=== PATIENT | female | born 1965 | race Caucasian/White ===

== ENCOUNTER 2023-03-31 09:08 | Outpatient (RCR) | payer MEDICARE, OTHER, SELFPAY | END 2023-03-31 23:59 | disposition home or self-care (01) | LOC: RPT 09:08 | PROVIDERS: ATTENDING PHYSICIAN Internal Medicine; FAMILY PHYSICIAN Family Medicine | DX: K59.4 Anal spasm (principal); M62.89 Other specified disorders of muscle; N94.10 Unspecified dyspareunia; R10.2 Pelvic and perineal pain; Z73.6 Limitation of activities due to disability | CPT/HCPCS: 97110; 97112; 97140; 97530 ==

== ENCOUNTER 2023-04-14 09:03 | Outpatient (RCR) | payer MEDICARE, OTHER, SELFPAY | END 2023-04-14 23:59 | disposition home or self-care (01) | LOC: RPT 09:03 | PROVIDERS: ATTENDING PHYSICIAN Internal Medicine; FAMILY PHYSICIAN Family Medicine | DX: K59.4 Anal spasm (principal); M62.89 Other specified disorders of muscle; N94.10 Unspecified dyspareunia; R10.2 Pelvic and perineal pain | CPT/HCPCS: 97112; 97140; 97530 ==

== ENCOUNTER 2023-06-01 18:54 | Outpatient (RCR) | payer MEDICARE, OTHER, SELFPAY | END 2023-06-01 23:59 | disposition home or self-care (01) | LOC: RPT 18:54 | PROVIDERS: ATTENDING PHYSICIAN Internal Medicine; FAMILY PHYSICIAN Family Medicine | DX: K59.4 Anal spasm (principal); M62.89 Other specified disorders of muscle; N94.10 Unspecified dyspareunia; R10.2 Pelvic and perineal pain; Z73.6 Limitation of activities due to disability | CPT/HCPCS: 97110; 97112; 97140; 97530 ==

== ENCOUNTER 2023-06-19 09:59 | Outpatient (RCR) | payer MEDICARE, OTHER, SELFPAY | END 2023-06-19 23:59 | disposition home or self-care (01) | LOC: RPT 09:59 | PROVIDERS: ATTENDING PHYSICIAN Internal Medicine; FAMILY PHYSICIAN Family Medicine | DX: K59.4 Anal spasm (principal); M62.89 Other specified disorders of muscle; N94.10 Unspecified dyspareunia; R10.2 Pelvic and perineal pain; Z73.6 Limitation of activities due to disability | CPT/HCPCS: 97110; 97140; 97530 ==

== ENCOUNTER → 2023-07-12 08:02 | Outpatient (REF) | payer MEDICARE, OTHER, SELFPAY | LOC: RAD 08:02 | PROVIDERS: ATTENDING PHYSICIAN Nurse Practitioner; FAMILY PHYSICIAN Family Medicine | DX: M54.2 Cervicalgia (principal); M54.12 Radiculopathy, cervical region | CPT/HCPCS: 72052 ==

== ENCOUNTER 2023-07-17 13:46 | Outpatient (RCR) | payer MEDICARE, OTHER, SELFPAY | END 2023-08-04 23:59 | disposition home or self-care (01) | LOC: RPT 13:46 | PROVIDERS: ATTENDING PHYSICIAN Internal Medicine; FAMILY PHYSICIAN Family Medicine | DX: K59.4 Anal spasm (principal); M62.89 Other specified disorders of muscle; N94.10 Unspecified dyspareunia; R10.2 Pelvic and perineal pain; Z73.6 Limitation of activities due to disability | CPT/HCPCS: 97140; 97530 ==

== ENCOUNTER → 2023-07-18 08:58 | Outpatient (REF) | payer MEDICARE, OTHER, SELFPAY | LOC: RAD 08:58 | PROVIDERS: ATTENDING PHYSICIAN Psychiatry & Neurology Neurology; FAMILY PHYSICIAN Family Medicine | DX: M54.2 Cervicalgia (principal) | CPT/HCPCS: 76536 ==

== ENCOUNTER 2023-09-06 17:05 | Outpatient (RCR) | payer MEDICARE, OTHER, SELFPAY | END 2023-09-06 23:59 | disposition home or self-care (01) | LOC: RPT 17:05 | PROVIDERS: ATTENDING PHYSICIAN Internal Medicine; FAMILY PHYSICIAN Family Medicine | DX: K59.4 Anal spasm (principal); M62.89 Other specified disorders of muscle; N94.10 Unspecified dyspareunia; R10.2 Pelvic and perineal pain; Z73.6 Limitation of activities due to disability | CPT/HCPCS: 97112; 97140; 97530 ==

== ENCOUNTER 2023-09-25 11:04 | Outpatient (RCR) | payer MEDICARE, OTHER, SELFPAY | END 2023-09-25 23:59 | disposition home or self-care (01) | LOC: RPT 11:04 | PROVIDERS: ATTENDING PHYSICIAN Internal Medicine; FAMILY PHYSICIAN Family Medicine | DX: K59.4 Anal spasm (principal); M62.89 Other specified disorders of muscle; N94.10 Unspecified dyspareunia; R10.2 Pelvic and perineal pain; Z73.6 Limitation of activities due to disability | CPT/HCPCS: 97112; 97140; 97530 ==

== ENCOUNTER → 2023-10-02 13:51 | Outpatient (REF) | payer MEDICARE, OTHER, SELFPAY | LOC: RAD 13:51 | PROVIDERS: ATTENDING PHYSICIAN Internal Medicine; FAMILY PHYSICIAN Family Medicine | DX: K59.04 Chronic idiopathic constipation (principal); R11.2 Nausea with vomiting, unspecified; R63.4 Abnormal weight loss; R10.13 Epigastric pain; Z87.19 Personal history of other diseases of the digestive system | CPT/HCPCS: 71270; 74178; Q9967 ==

== ENCOUNTER → 2023-11-06 06:56 | Outpatient (REF) | payer MEDICARE, OTHER, SELFPAY | LOC: MRI 06:56 | PROVIDERS: ATTENDING PHYSICIAN Nurse Practitioner; FAMILY PHYSICIAN Family Medicine; REFERRING PHYSICIAN Psychiatry & Neurology Neurology | DX: M96.1 Postlaminectomy syndrome, not elsewhere classified (principal); G89.4 Chronic pain syndrome; M54.50 Low back pain, unspecified; M54.16 Radiculopathy, lumbar region | CPT/HCPCS: 72148 ==

== ENCOUNTER 2023-11-08 11:17 | Outpatient (RCR) | payer MEDICARE, OTHER, SELFPAY | END 2023-11-08 23:59 | disposition home or self-care (01) | LOC: RPT 11:17 | PROVIDERS: ATTENDING PHYSICIAN Internal Medicine; FAMILY PHYSICIAN Family Medicine | DX: K59.4 Anal spasm (principal); M62.89 Other specified disorders of muscle; N94.10 Unspecified dyspareunia; R10.2 Pelvic and perineal pain; Z73.6 Limitation of activities due to disability | CPT/HCPCS: 97112; 97140; 97530 ==

== ENCOUNTER 2023-11-13 09:07 | Outpatient (RCR) | payer MEDICARE, OTHER, SELFPAY | END 2023-11-13 23:59 | disposition home or self-care (01) | LOC: RPT 09:07 | PROVIDERS: ATTENDING PHYSICIAN Internal Medicine; FAMILY PHYSICIAN Family Medicine | DX: K59.4 Anal spasm (principal); M62.89 Other specified disorders of muscle; N94.10 Unspecified dyspareunia; R10.2 Pelvic and perineal pain; Z73.6 Limitation of activities due to disability | CPT/HCPCS: 97112; 97530 ==

== ENCOUNTER 2024-01-08 06:57 | Outpatient (RCR) | payer MEDICARE, OTHER, SELFPAY | END 2024-01-08 23:59 | disposition home or self-care (01) | LOC: RPT 06:57 | PROVIDERS: ATTENDING PHYSICIAN Internal Medicine; FAMILY PHYSICIAN Family Medicine | DX: K59.4 Anal spasm (principal); M62.89 Other specified disorders of muscle; N94.10 Unspecified dyspareunia; R10.2 Pelvic and perineal pain; Z73.6 Limitation of activities due to disability | CPT/HCPCS: 97140; 97530 ==

== ENCOUNTER → 2024-01-24 14:27 | Outpatient (REF) | payer MEDICARE, OTHER, SELFPAY | LOC: RAD 14:27 | PROVIDERS: ATTENDING PHYSICIAN Internal Medicine; FAMILY PHYSICIAN Family Medicine; OTHER PHYSICIAN Physician Assistant Surgical | DX: K59.04 Chronic idiopathic constipation (principal); M62.89 Other specified disorders of muscle; M54.50 Low back pain, unspecified | CPT/HCPCS: 72110; 74019 ==

== ENCOUNTER 2024-02-02 09:03 | Outpatient (RCR) | payer MEDICARE, OTHER, SELFPAY | END 2024-02-02 23:59 | disposition home or self-care (01) | LOC: RPT 09:03 | PROVIDERS: ATTENDING PHYSICIAN Internal Medicine; FAMILY PHYSICIAN Family Medicine | DX: K59.4 Anal spasm (principal); M62.89 Other specified disorders of muscle; N94.10 Unspecified dyspareunia; R10.2 Pelvic and perineal pain; Z73.6 Limitation of activities due to disability | CPT/HCPCS: 97110; 97112; 97530 ==

== ENCOUNTER 2024-02-21 15:06 | Outpatient (RCR) | payer MEDICARE, OTHER, SELFPAY | END 2024-02-21 23:59 | disposition home or self-care (01) | LOC: RPT 15:06 | PROVIDERS: ATTENDING PHYSICIAN Internal Medicine; FAMILY PHYSICIAN Family Medicine | DX: K59.4 Anal spasm (principal); M62.89 Other specified disorders of muscle; N94.10 Unspecified dyspareunia; R10.2 Pelvic and perineal pain; Z73.6 Limitation of activities due to disability | CPT/HCPCS: 97110; 97140; 97530 ==

== ENCOUNTER → 2024-02-28 07:55 | Outpatient (REF) | payer MEDICARE, OTHER, SELFPAY | LOC: RAD 07:55 | PROVIDERS: ATTENDING PHYSICIAN Internal Medicine; FAMILY PHYSICIAN Family Medicine | DX: K59.04 Chronic idiopathic constipation (principal); R11.2 Nausea with vomiting, unspecified; M62.89 Other specified disorders of muscle | CPT/HCPCS: 78264; A9541 ==

== ENCOUNTER → 2024-03-14 08:12 | Outpatient (REF) | payer MEDICARE, OTHER, SELFPAY | LOC: WDC 08:12 | PROVIDERS: ATTENDING PHYSICIAN Family Medicine | DX: Z12.31 Encounter for screening mammogram for malignant neoplasm of breast (principal) | CPT/HCPCS: 77063; 77067 ==

== ENCOUNTER → 2024-03-15 17:59 | Outpatient (REF) | payer MEDICARE, OTHER, SELFPAY | LOC: PAVMRI 17:59 | PROVIDERS: ATTENDING PHYSICIAN Physician Assistant Surgical; FAMILY PHYSICIAN Family Medicine | DX: M54.2 Cervicalgia (principal); M54.12 Radiculopathy, cervical region | CPT/HCPCS: 72141 ==

== ENCOUNTER → 2024-03-21 09:25 | Outpatient (REF) | payer MEDICARE, OTHER, SELFPAY | LOC: RAD 09:25 | PROVIDERS: ATTENDING PHYSICIAN Internal Medicine; FAMILY PHYSICIAN Family Medicine | DX: K59.04 Chronic idiopathic constipation (principal); R11.2 Nausea with vomiting, unspecified; M62.89 Other specified disorders of muscle | CPT/HCPCS: 74270 ==

== ENCOUNTER 2024-03-29 09:55 | Outpatient (RCR) | payer MEDICARE, OTHER, SELFPAY | END 2024-03-29 23:59 | disposition home or self-care (01) | LOC: RPT 09:55 | PROVIDERS: ATTENDING PHYSICIAN Internal Medicine; FAMILY PHYSICIAN Family Medicine | DX: K59.4 Anal spasm (principal); M62.89 Other specified disorders of muscle; N94.10 Unspecified dyspareunia; R10.2 Pelvic and perineal pain; Z73.6 Limitation of activities due to disability | CPT/HCPCS: 97110; 97112; 97140; 97530 ==

== ENCOUNTER 2024-05-10 15:02 | Outpatient (RCR) | payer MEDICARE, OTHER, SELFPAY | END 2024-05-10 23:59 | disposition home or self-care (01) | LOC: RPT 15:02 | PROVIDERS: ATTENDING PHYSICIAN Internal Medicine; FAMILY PHYSICIAN Family Medicine | DX: K59.4 Anal spasm (principal); M62.89 Other specified disorders of muscle; N94.10 Unspecified dyspareunia; R10.2 Pelvic and perineal pain; Z73.6 Limitation of activities due to disability | CPT/HCPCS: 97110; 97112; 97530 ==

== ENCOUNTER 2024-06-07 15:09 | Outpatient (RCR) | payer MEDICARE, OTHER, SELFPAY | END 2024-06-07 23:59 | disposition home or self-care (01) | LOC: RPT 15:09 | PROVIDERS: ATTENDING PHYSICIAN Internal Medicine; FAMILY PHYSICIAN Family Medicine | DX: K59.4 Anal spasm (principal); M62.89 Other specified disorders of muscle; N94.10 Unspecified dyspareunia; R10.2 Pelvic and perineal pain; Z73.6 Limitation of activities due to disability | CPT/HCPCS: 97110; 97112; 97530 ==

== ENCOUNTER 2024-06-17 09:02 | Outpatient (RCR) | payer MEDICARE, OTHER, SELFPAY | END 2024-06-17 23:59 | disposition home or self-care (01) | LOC: RPT 09:02 | PROVIDERS: ATTENDING PHYSICIAN Internal Medicine; FAMILY PHYSICIAN Family Medicine | DX: K59.4 Anal spasm (principal); M62.89 Other specified disorders of muscle; N94.10 Unspecified dyspareunia; R10.2 Pelvic and perineal pain; Z73.6 Limitation of activities due to disability | CPT/HCPCS: 97530 ==

== ENCOUNTER 2024-07-22 10:07 | Outpatient (RCR) | payer MEDICARE, OTHER, SELFPAY | END 2024-07-22 23:59 | disposition home or self-care (01) | LOC: RPT 10:07 | PROVIDERS: ATTENDING PHYSICIAN Internal Medicine; FAMILY PHYSICIAN Family Medicine | DX: K59.4 Anal spasm (principal); M62.89 Other specified disorders of muscle; N94.10 Unspecified dyspareunia; R10.2 Pelvic and perineal pain; Z73.6 Limitation of activities due to disability | CPT/HCPCS: 97530 ==

== ENCOUNTER 2024-08-29 06:05 | Inpatient (IN) | payer MEDICARE, OTHER, SELFPAY ==
[2024-08-16 09:03] LABS: Hematocrit 36.6 % (37.0-47.0); Hemoglobin 12.1 g/dL (12.0-16.0); Mean Corp Hgb Conc. 33.1 g/dL (33.0-37.0); Mean Corpuscular Volume 90.6 fL (81.0-99.0); Mean Platelet Volume 10.1 fL (7.4-10.4); Platelet Count 253 10^3/uL (130-400); Red Blood Cell Count 4.04 10^6/uL (4.20-5.40); Red Cell Dist. Width 11.9 % (11.5-14.5); White Blood Cell Count 5.6 10^3/uL (4.8-10.8)
[2024-08-16 09:22] LABS: INR 0.93; PT 12.7 Sec (11.4-14.6)
[2024-08-16 09:23] LABS: APTT 26.3 Sec (23.4-35.0)
[2024-08-16 09:32] LABS: ALT (SGPT) 15 U/L (0-35); AST (SGOT) 18 U/L (14-36); Albumin 3.6 g/dl (3.5-5.0); Alkaline Phosphatase 71 U/L (38-126); Blood Urea Nitrogen 12 mg/dl (7-17); Calcium 9.7 mg/dl (8.4-10.2); Carbon Dioxide 33 mmol/L (22-30); Chloride 104 mmol/L (98-107); Glucose 89 mg/dl (70-99); Potassium 4.6 mmol/L (3.5-5.1); Sodium 140 mmol/L (135-145); Total Bilirubin 0.5 mg/dl (0.2-1.3); eGFR > 60.00
[2024-08-16 12:59] LABS: Glycohemoglobin (HgbA1c) 4.8 % (4.0-5.6)
[2024-08-16 13:37] VITALS: BMI 29.5
[2024-08-29] VITALS (17 sets, daily range): BP systolic 105–134; BP diastolic 62–93; BMI 29.5
[2024-08-29] MEDS: NORMOSOL-R/PLASMALYTE-A 1000 IV ×3 (06:50→21:44)
[2024-08-29] MEDS: TYLENOL 1000 MG PO (06:54)
[2024-08-29] MEDS: NEURONTIN 600 MG PO (06:54)
[2024-08-29] MEDS: HEPARIN 5000 UNITS SC (06:54)
[2024-08-29] MEDS: ENTEREG 12 MG PO (06:54)
[2024-08-29 07:07] LABS: Glucose - Point of Care 80 mg/dl (70-99)
--- NOTE | 2024-08-29 09:58 | W.IMMPOSTOP ---
Surgical Immed Post Op Note
-
Primary Surgeon: Catalina Coffman MD
Assisting Surgeon: SUDHA Camarena
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
Post-op Diagnosis: same
Procedure Performed: 1) robotic loop ileostomy creation 2) lysis of adhesions
Anesthesia Type: general plus local
Specimen / Cultures: none
Estimated Blood Loss: 10 cc
Complications: no immediate
Operative Findings: abdominal adhesions
Sandhu in bladder.
Sending to med surg.
[2024-08-29 10:17] LABS: Glucose - Point of Care 109 mg/dl (70-99)
[2024-08-29 10:50] LABS: % Basophils 0.3 % (0-2); % Eosinophils 0.1 % (0-6); % Immature Granulocytes 0.4 % (0-0.5); % Lymphocytes 9.3 % (20.5-51.1); % Monocytes 2.5 % (1.7-9.3); % Neutrophils 87.4 % (42.2-75.2); Absolute Lymphocytes 0.7 10^3/uL (1.2-3.4); Absolute Monocytes 0.2 10^3/uL (0.1-0.6); Absolute Neutrophils 6.2 10^3/uL (1.4-6.5); Hematocrit 36.3 % (37.0-47.0); Hemoglobin 12.4 g/dL (12.0-16.0); Mean Corp Hgb Conc. 34.2 g/dL (33.0-37.0); Mean Corpuscular Hgb 30.2 pg (27.0-31.0); Mean Corpuscular Volume 88.3 fL (81.0-99.0); Mean Platelet Volume 9.6 fL (7.4-10.4); Nucleated Red Blood Cells % 0 %; Platelet Count 202 10^3/uL (130-400); Red Blood Cell Count 4.11 10^6/uL (4.20-5.40); Red Cell Dist. Width 11.7 % (11.5-14.5); White Blood Cell Count 7.1 10^3/uL (4.8-10.8)
[2024-08-29 11:03] LABS: Blood Urea Nitrogen 6 mg/dl (7-17); Carbon Dioxide 25 mmol/L (22-30); Chloride 108 mmol/L (98-107); Estimated Creatinine Clearance 103 ml/min; Glucose 107 mg/dl (70-99); Magnesium 1.8 mg/dl (1.6-2.3); Potassium 3.5 mmol/L (3.5-5.1); Sodium 139 mmol/L (135-145); eGFR > 60.00
[2024-08-29] MEDS: TORADOL 10 MG IV ×3 (11:25→21:30)
[2024-08-29] MEDS: DILAUDID 0.25 MG IV ×2 (12:14→20:49)
--- NOTE | 2024-08-29 12:45 | PTCARENOTE ---
Patient admitted from PACU post robotic loop ileostomy secondary to colonic inertia.The patient is drowsy but arouses easily.She reports her pain at 4 out of 10.All incisions are open to air without drainage.Vital signs are stable.The patient is in
her bed with the call egan in reach.
[2024-08-29] MEDS: TYLENOL PO ×2 (15:05→23:22)
[2024-08-29] MEDS: TYLENOL 650 MG PO ×2 (16:00→20:42)
[2024-08-29] MEDS: COREG 3.125 MG PO (20:42)
[2024-08-29] MEDS: ZANAFLEX 2 MG PO (21:30)
[2024-08-29] MEDS: CYMBALTA DELAYED RELEASE 90 MG PO (21:30)
[2024-08-30] MEDS: DILAUDID 0.5 MG IV (01:15)
[2024-08-30] MEDS: TORADOL 10 MG IV ×4 (03:07→21:48)
[2024-08-30] MEDS: TYLENOL 650 MG PO ×6 (03:08→23:44)
[2024-08-30 03:31] VITALS: BP 100/61
[2024-08-30 06:00] VITALS: BMI 29.9
[2024-08-30] MEDS: DILAUDID 0.25 MG IV (06:40)
[2024-08-30 07:20] VITALS: BP 104/67
[2024-08-30 07:50] LABS: % Basophils 0.1 % (0-2); % Eosinophils 0.2 % (0-6); % Immature Granulocytes 0.4 % (0-0.5); % Lymphocytes 21.4 % (20.5-51.1); % Monocytes 10.3 % (1.7-9.3); % Neutrophils 67.6 % (42.2-75.2); Absolute Lymphocytes 1.7 10^3/uL (1.2-3.4); Absolute Monocytes 0.8 10^3/uL (0.1-0.6); Absolute Neutrophils 5.4 10^3/uL (1.4-6.5); Hematocrit 31.3 % (37.0-47.0); Hemoglobin 10.7 g/dL (12.0-16.0); Mean Corp Hgb Conc. 34.2 g/dL (33.0-37.0); Mean Corpuscular Volume 87.7 fL (81.0-99.0); Mean Platelet Volume 9.9 fL (7.4-10.4); Nucleated Red Blood Cells % 0 %; Platelet Count 193 10^3/uL (130-400); Red Blood Cell Count 3.57 10^6/uL (4.20-5.40); Red Cell Dist. Width 11.6 % (11.5-14.5)
[2024-08-30 08:50] LABS: Blood Urea Nitrogen 6 mg/dl (7-17); Calcium 9.8 mg/dl (8.4-10.2); Carbon Dioxide 28 mmol/L (22-30); Chloride 106 mmol/L (98-107); Estimated Creatinine Clearance 104 ml/min; Glucose 93 mg/dl (70-99); Magnesium 1.8 mg/dl (1.6-2.3); Potassium 4.2 mmol/L (3.5-5.1); Sodium 136 mmol/L (135-145); eGFR > 60.00
[2024-08-30] MEDS: PROTONIX 40 MG PO (09:17)
[2024-08-30] MEDS: ENTEREG 12 MG PO ×2 (09:17→20:38)
[2024-08-30] MEDS: COREG PO (09:24)
[2024-08-30 11:15] VITALS: BP 115/67
--- NOTE | 2024-08-30 12:05 | CM ---
CM following re: discharge planning.
Reviewed pt's chart, met with pt and two daughters at bedside.
Pt is a 59 year old female, admitted with primary dx of Robotic loop ileostomy creation.
Pt reports she lives with and a daughter in a 2SH, 1 step to enter, another daughter lives next door. Pt described herself as independent in all areas [employer].
CM consulted to arrange VN services for Ostomy care. CM discussed it with the pt, VN choices provided, [facility] chosen. A referral to [facility] made.
PCP: Cady Luke
Pharmacy: [facility].
D/C plan: home with [facility] and family support.
CM will follow with discharge plan updates as hospitalization progresses
[2024-08-30] MEDS: NORMOSOL-R/PLASMALYTE-A IV (12:07)
--- NOTE | 2024-08-30 12:44 | VNURNOTE ---
Home Health Liaison met with patient and daughters at bedside to discuss [facility] nurse/therapy, visits, schedule and homebound status. Patient is agreeable and understands that visits at home will be 2-3 x per week to assess and teach medical and
ostomy management.
[facility] contact information provided. Patient is aware that [facility] will contact them for start of care in 1-2 days after discharge from .
[facility] referral completed in [facility].
--- NOTE | 2024-08-30 13:49 | WOUNDNOTE ---
[facility] RN note: Patient s/p ostomy surgery yesterday (ileostomy). Patient has VN set up. Daughters Varsha and Robyn present.
See H&P for complete history.
PMH:
Ostomy location and type: Ileostomy. Patient instructed how to empty pouch, change appliance. Stoma pink with stoma bridge intact. Peristomal skin intact.
Instructed patient ostomy pouch emptying and changing appliance using Caroleen wafer # [id number], Blayne seal and Melvina pouch # [id number].
Ostomy supplies ordered from [facility] and at bedside. Ileostomy teaching folder given.
--- NOTE | 2024-08-30 13:56 | W.PN.CRS1 ---
Today's Communication / Plan
-
fulls
dc hart
lovenox
Assessment/Plan
-
POD#1 1) robotic loop ileostomy creation 2) lysis of adhesions
WBC 8.0, hemoglobin 10.7
- Advance diet to full liquids
- DC IV fluids and tolerating intake
- Start Lovenox for DVT prophylaxis. Teds and SCDs in place.
- Case management consulted for visiting nurse
- Wound RN for stoma
- OOB as tolerated
- DC Hart
- Pain control: Tylenol and Toradol standing, Dilaudid as needed
Subjective Data
Procedure
08/29/24: 1) robotic loop ileostomy creation 2) lysis of adhesions
Subjective Data
Date of Service: August 30, 2024
Patient states she is feeling well. She has no complaints. Her pain is well-controlled. She is tolerating a clear liquid diet. Denies nausea or vomiting.
Objective Data
-
Vital Signs
Temp Pulse Resp BP Pulse Ox
98.4 F 82 18 115/67 96
08/30/24 11:15 08/30/24 11:15 08/30/24 11:15 08/30/24 11:15 08/30/24 11:15
Intake & Output
08/29/24 08/30/24 08/31/24
06:59 06:59 06:59
Intake Total 437 / 437 600 / 600
Output Total 125 / 125 1400 / 1400
Balance 312 / 312 -800 / -800
Intake:
Oral fluids 237 / 237 600 / 600
IV fluids (Total) 200 / 200
normosol 200 / 200
Output:
Liquid stool amount 50 / 50
Ileostomy 50 / 50
Urine, Hart 75 / 75 1400 / 1400
Lab Results
08/30/24 07:13
08/30/24 07:13
Physical Exam
-
General: No Acute Distress and AOx3
Abdomen: Soft, Non Distended, Non Tender and Other (Ileostomy warm and pink with liquid brown thin output)
Skin: Warm and Dry
[2024-08-30 16:26] VITALS: BP 129/77
--- NOTE | 2024-08-30 16:30 | WOUNDNOTE ---
[facility] RN Note: Faxed [place] a patient signed [employer] fax request form for a [employer] ostomy secure starter kit request.
[2024-08-30] MEDS: LOVENOX 40 MG SC (18:42)
[2024-08-30] MEDS: COREG 3.125 MG PO (20:38)
[2024-08-30] MEDS: CYMBALTA DELAYED RELEASE 90 MG PO (21:48)
[2024-08-30] MEDS: ZANAFLEX 2 MG PO (21:50)
[2024-08-30 23:25] VITALS: BP 120/68
[2024-08-31] MEDS: TYLENOL 650 MG PO ×3 (03:24→14:02)
[2024-08-31] MEDS: TORADOL 10 MG IV ×2 (03:24→09:34)
[2024-08-31 07:35] VITALS: BP 118/71
[2024-08-31 08:03] LABS: Hematocrit 34.4 % (37.0-47.0); Hemoglobin 11.5 g/dL (12.0-16.0); Mean Corp Hgb Conc. 33.4 g/dL (33.0-37.0); Mean Corpuscular Hgb 30.4 pg (27.0-31.0); Platelet Count 216 10^3/uL (130-400); Red Blood Cell Count 3.78 10^6/uL (4.20-5.40); Red Cell Dist. Width 11.9 % (11.5-14.5); White Blood Cell Count 7.5 10^3/uL (4.8-10.8)
[2024-08-31 08:22] LABS: Blood Urea Nitrogen 5 mg/dl (7-17); Calcium 9.5 mg/dl (8.4-10.2); Carbon Dioxide 31 mmol/L (22-30); Chloride 108 mmol/L (98-107); Estimated Creatinine Clearance 104 ml/min; Glucose 85 mg/dl (70-99); Potassium 4.5 mmol/L (3.5-5.1); Sodium 137 mmol/L (135-145); eGFR > 60.00
[2024-08-31] MEDS: COREG 3.125 MG PO (09:34)
[2024-08-31] MEDS: ENTEREG 12 MG PO (09:34)
[2024-08-31] MEDS: PROTONIX 40 MG PO (09:34)
--- NOTE | 2024-08-31 10:14 | W.PN.CRS1 ---
Addendum entered and electronically signed by Jamarcus Coffman MD 08/31/24 15:06:
I saw and examined the patient.
The INCIDENT MANAGER's note was reviewed and I agree with the note.
Comment:
Seen earlier with INCIDENT MANAGER.
No complaints. Tolerated fulls.
AFVSS; Labs fine; stoma with 400 cc/24 hrs.
Abdominal incisions looked good. Stoma viable with output.
DIet advanced.
DIscharge.
Original Note:
Today's Communication / Plan
-
advance diet, dispo planning
Assessment/Plan
-
59 yo female with a h/o colonic inertia now POD#2 1) robotic loop ileostomy creation 2) lysis of adhesions
Labs stable
AFVSS
Stoma productive of stool/flatus. Tolerating fulls.
- Advance diet to low residue
- Start Lovenox for DVT prophylaxis. Teds and SCDs in place.
- Case management consulted for visiting nurse
- Wound RN for stoma, supplies ordered
- OOB as tolerated
- Pain control: Tylenol and Toradol standing, Oxycodone/Dilaudid as needed
Tentative d/c today vs tomorrow pending diet tolerance and home care set up
Subjective Data
Procedure
08/29/24: 1) robotic loop ileostomy creation 2) lysis of adhesions
Subjective Data
Date of Service: August 31, 2024
Patient seen and examined at bedside. Denies n/v. Tolerating full liquids. Some cramping to the right abdomen overnight but now resolved with passage of stool/flatus from stoma.
Objective Data
-
Vital Signs
Temp Pulse Resp BP Pulse Ox
98.3 F 70 18 118/71 99
08/31/24 07:35 08/31/24 07:35 08/31/24 07:35 08/31/24 07:35 08/31/24 07:35
Intake & Output
08/30/24 08/31/24 09/01/24
06:59 06:59 06:59
Intake Total 437 / 437 2325 / 2325 480 / 480
Output Total 125 / 125 3500 / 3500
Balance 312 / 312 -1175 / -1175 480 / 480
Intake:
Oral fluids 237 / 237 1925 / 1925 480 / 480
IV fluids (Total) 200 / 200
normosol 200 / 200
IV piggybacks 400 / 400
Output:
Liquid stool amount 50 / 50 450 / 450
Ileostomy 50 / 50 450 / 450
Urine, Sandhu 75 / 75 1400 / 1400
Urine, Voided 1650 / 1650
Other:
Number of approximated MODERATE 2
amounts of urine
Lab Results
08/31/24 07:50
08/31/24 07:50
Physical Exam
-
General: No Acute Distress and AOx3
Abdomen: Soft, Non Distended, Non Tender and Other (Ileostomy warm and pink with brown stool, gas in appliance, Bridge present)
Skin: Warm and Dry
Incision: Clear, Dry, Intact
[2024-08-31 12:43] VITALS: BP 118/68
--- NOTE | 2024-08-31 13:47 | W.DS.TRANS ---
Addendum entered and electronically signed by LAKISHA Guy 08/31/24 15:43:
dictated #[id number]
Original Note:
DC Summary - Auto Driver
-
Discharge Instructions:
Sleep Apnea Risk Low
Discharge Diagnosis/Procedures 1) robotic loop ileostomy creation 2) lysis of
adhesions
Diet Low Residue
Activity No strenuous activity
Additional Activity No lifting over 10lbs (gallon of milk)
Driving Restrictions No driving for 1 week
Bathing Restrictions OK to Shower
Other Services VN
Wound Care Allow glue to naturally fall off. Do not pick at
incisions.
Instructions:
Stand-Alone Forms:
Changes to Home Medications: No
Discharge Medications:
DC Medications w/original date entered in [employer]
alprazolam 0.5 mg tablet 0.25 mg PO DAILY PRN anxiety 07/22/16
duloxetine 30 mg capsule,delayed release 90 mg PO HS Depression 07/22/16
tizanidine 4 mg tablet 2 mg PO HS Muscle Spasms 08/16/17
ubrogepant 100 mg tablet (Ubrelvy) 100 mg PO DAILY PRN Migraine 02/13/21
Morphine Pump 1 dose SC .CONTINUOUS Pain 11/03/21
carvedilol 3.125 mg tablet 3.125 mg PO BID Blood pressure 11/03/21
atogepant 30 mg tablet (Qulipta) 30 mg PO HS migraine 02/11/23
naloxegol 25 mg tablet (Movantik) 25 mg PO DAILY #1 tab 02/13/23
pantoprazole 40 mg tablet,delayed release (Protonix) 40 mg PO DAILY #30 tabs 02/13/23
estradiol 0.01% (0.1 mg/gram) vaginal cream (Estrace) 1 g vaginal QWEEK 08/22/24
ondansetron 8 mg disintegrating tablet 8 mg PO Q8H PRN nausea 08/22/24
Home Medication Changes
Pending Results: No
--- NOTE | 2024-08-31 14:08 | CM ---
Patient has been medically cleared for discharge to home with [facility], [facility] RN services for wound care. recreation technician RN notified of discharge and start of care is 09/01/24. Family will transport home.
== END 2024-08-31 15:17 | disposition home health service (06) | DRG 331 ==
LOC: 2 SOUTH 06:05
PROVIDERS: Registered Nurse; ADMITTING PHYSICIAN Surgery; FAMILY PHYSICIAN Family Medicine; REFERRING PHYSICIAN Internal Medicine
PROC: 0D1B4Z4 Bypass Ileum to Cutaneous, Percutaneous Endoscopic Approach (ICD-10-PCS; 2024-08-29)
PROC: 0DN84ZZ Release Small Intestine, Percutaneous Endoscopic Approach (ICD-10-PCS; 2024-08-29)
DX: K59.00 Constipation, unspecified (principal); G89.29 Other chronic pain; K31.84 Gastroparesis; K66.0 Peritoneal adhesions (postprocedural) (postinfection)
CPT/HCPCS: 36415; 80048; 80053; 82962; 83036; 83735; 85025; 85027; 85610; 85730; 86850; 86900; 86901; 93005; J1335

== ENCOUNTER → 2024-11-06 09:45 | Outpatient (REF) | payer MEDICARE, OTHER, SELFPAY | LOC: EMG 09:45 | PROVIDERS: ATTENDING PHYSICIAN Physician Assistant Surgical; FAMILY PHYSICIAN Family Medicine | DX: M54.17 Radiculopathy, lumbosacral region (principal) | CPT/HCPCS: 95886; 95911 ==

== ENCOUNTER → 2025-03-03 11:25 | Outpatient (REF) | payer MEDICARE, OTHER, SELFPAY | LOC: RAD 11:25 | PROVIDERS: ATTENDING PHYSICIAN Specialist; FAMILY PHYSICIAN Family Medicine | DX: N20.0 Calculus of kidney (principal) | CPT/HCPCS: 74176 ==

== ENCOUNTER 2025-03-11 15:59 | Inpatient (IN) | payer MEDICARE, OTHER, SELFPAY ==
[2025-03-11 12:04] VITALS: BP 127/81
[2025-03-11 13:02] VITALS: BMI 33.2
--- NOTE | 2025-03-11 13:09 | ED.GENMED ---
History of Present Illness
General
Chief Complaint: Urinary Symptoms
Time Seen by Provider: 03/11/25 13:09
History of Present Illness
History of Present Illness:
FOCUSED PAST MEDICAL HISTORY
- History of opioid dependence IBS, gastroparesis, chronic pain syndrome
REVIEW OF OLD RECORDS
- Patient had robotic loop ileostomy with Dr. Coffman August 2024 due to chronic colonic inertia and obstructive defecation
Note:
CHIEF COMPLAINT(S)
Persistent urinary tract infection with right-sided flank pain.
HISTORY OF PRESENT ILLNESS
The patient is a 59-year-old female with a history of recurrent urinary tract infections and urolithiasis who was referred to the ER by her urologist, Dr. Mallory. She reports severe pain in her right flank, suggesting possible kidney involvement.
The patient has a known history of kidney stones. She was informed by Dr. Calderón nurse that her recent urine culture showed resistance to oral antibiotics. Previously, she experienced fevers and chills over the weekend, which were briefly
alleviated by antibiotics, but her symptoms have persisted.
The patient reports dysuria, explaining that urination is significantly painful. She has undergone urodynamic testing that showed bladder retention issues due to inadequate bladder contraction, and has been advised on self-catheterization, although
she has not yet begun this. Physical examination elicited tenderness on the right side, aggravating the patients discomfort.
PAST MEDICAL AND SURIGICAL HISTORY
History of recurrent urinary tract infections, urolithiasis, ileostomy.
ADDITIONAL HISTORY OBTAINED FROM SOURCES OTHER THAN THE PATIENT
Information regarding the patients urine culture resistance and referral for IV antibiotics was obtained from the nurse at Dr. Luciano office, who spoke with the patient and then consulted with the physician.
REVIEW OF SYSTEMS
- Genitourinary: Painful urination, urinary retention as per prior urodynamic study.
- Constitutional: Reported recent fevers and chills.
PHYSICAL EXAM
General: Alert, no acute distress.
Skin: Warm, dry.
Head: Normocephalic, atraumatic.
Neck: Supple, trachea midline.
Eye, Ears, Nose, Mouth, and Throat: Oral mucosa moist.
Cardiovascular: Normal peripheral perfusion, No edema.
Respiratory: Respirations are non-labored.
Gastrointestinal: Abdomen nondistended, no significant abdominal tenderness noted on the right side near the ileostomy site.
Back: Normal range of motion, Normal alignment. Questionable right CVA tenderness
Musculoskeletal: Normal ROM, normal strength.
Neurological: Alert and oriented to person, place, time, and situation, No focal neurological deficit observed.
Psychiatric: Cooperative, appropriate mood & affect.
PLAN
- Admission for intravenous antibiotic therapy.
- Urinalysis to be conducted to assess current urinary status.
- Consultation with the urology team for further management and consideration of bladder retention treatment options.
DIFFERENTIAL DIAGNOSIS
The Differential Diagnosis includes, in no particular order and is not limited to:
1. Pyelonephritis
2. Urinary tract infection
3. Urolithiasis with secondary infection
4. Urosepsis
5. Bladder dysfunction due to neurogenic bladder
6. Renal abscess
7. Antibiotic-resistant bacterial infection
8. Cystitis
9. Post-ileostomy complications
10. Hydronephrosis due to stone obstruction
SUMMARY OF ENCOUNTER
The patient, a 59-year-old female, was seen in the emergency department due to a persistent urinary tract infection with right-sided flank pain. She has a history of recurrent urinary tract infections and urolithiasis. She reports dysuria, severe
right flank pain, and previously experienced fevers and chills. The urine culture revealed a multi-drug resistant E. coli infection resistant to several oral antibiotics, including Bactrim (sulfamethoxazole and trimethoprim). The patient has a known
sulfa allergy. Intravenous piperacillin and tazobactam (Zosyn) were selected for treatment due to its efficacy against the resistant strain. Admission was arranged for IV antibiotic therapy.
DISPOSITION
Admit.
ASSESSMENT
Multidrug-resistant E. coli urinary tract infection requiring IV antibiotic therapy due to oral antibiotic resistance.
MEDICATION RECONCILIATION
- Initiated intravenous piperacillin and tazobactam (Zosyn) therapy for the multi-drug resistant E. coli UTI.
MEDICAL DECISION MAKING
-Chronic conditions affecting care: History of recurrent urinary tract infections, urolithiasis, ileostomy.
- Differential Diagnoses: Pyelonephritis, Urinary tract infection, Urolithiasis with secondary infection, Urosepsis, Bladder dysfunction due to neurogenic bladder, Renal abscess, Antibiotic-resistant bacterial infection, Cystitis, Post-ileostomy
complications, Hydronephrosis due to stone obstruction.
-Data:
Category 1: Clinical information was obtained from an independent historian at Dr. Calderón office regarding antibiotic resistance and IV antibiotic suitability.
Category 3: Discussion of management with Dr. Mallory and Dr. Luna regarding the selection of piperacillin and tazobactam for IV treatment.
-Risk: Prescription medication was prescribed, specifically IV antibiotics due to resistance to oral antibiotics and the presence of sulfa allergy, requiring hospitalization for management.
DIAGNOSIS
Multi-drug resistant E. coli urinary tract infection (ICD-10: N39.0)
LABS
- CBC and chemistries unremarkable however potassium was hemolyzed but of note patient has normal renal function
UPDATE
- I reached out to Dr. Keita at 1:[address] PM [address] [place] text[address] Ozuna has sent the urine culture report that showed 50,000-100,000 CFU E. coli with sensitivity to ertapenem, gent, meropenem, Zosyn, Bactrim. Of note patient has been on Bactrim.
Sensitivity showed intermediate/resistance to: Augmentin, ampicillin, cefazolin, cefepime, cefoxitin, cefpodoxime, ceftriaxone, Cipro, Levaquin, nitrofurantoin, tobramycin.
Past History
Past History
ED Past Medical History: CAD, HTN, Hypercholesterolemia, NIDDM, MA, Hypothyroidism and Other (Possible seizures, pulmonary embolism, DVT, lupus, kidney stones, Chronic back apin, Migraines, PCOS, endometriosis, IBS, Pancreatitis)
ED Past Surgical History: Gynecological (Hysterectomy), Orthopedic, Tonsilectomy and Urological (Ureteral stent, lithotripsy)
Patient has exhibited threatening behavior?: No
PSI?: No
Social History
Tobacco: Non-smoker
Alcohol: Occasional
Personal:
Living: with family
Phy Exam
Physical Exam
Physical Exam:
See HPI
Course
Orders/Labs/Results
Orders:
Orders
03/11/25 13:17
Bladder Scan- Treatment ONCE
Urinalysis Reflex To Culture Urgent
03/11/25 13:24
Complete Blood Count/With Diff Urgent
03/11/25 13:55
Basic Metabolic Panel Urgent
03/11/25 14:20
Piperacillin/Tazo 3.375 Gram [Zosyn] 3.375 gram in 50 ml IV NOW
03/11/25 14:23
0.9% Sodium Chloride 1000 ml [Nss] 1,000 ml IV BOLUS
Abnormal Lab Results
03/11/25
13:55
Sodium 134 L mmol/L
(135-145)
03/11/25 13:24
03/11/25 13:55
Vital Signs
Initial and Last Documented VS:
Initial Vital Signs
Temp Pulse Resp BP Pulse Ox
36.6 C 73 20 127/81 99
03/11/25 12:04 03/11/25 12:04 03/11/25 12:04 03/11/25 12:04 03/11/25 12:04
Last Documented Vital Signs
Temp Pulse Resp BP Pulse Ox
36.6 C 73 20 127/81 99
03/11/25 12:04 03/11/25 12:04 03/11/25 12:04 03/11/25 12:04 03/11/25 13:12
*Pulse Oximetry
SaO2: 99
Oxygen Mode of Delivery: Room air
Patient hypoxic: no
*Critical Care Note
Total Time (30-74mins, 75-104mins- exclusive of procedures): Not Applicable
ED Attending Note
-
Portions of this chart may have been created with voice recognition software.� Occasional wrong word or��sound alike� substitutions may have occurred due to the inherent limitations of voice recognition software.
Discharge Plan
Departure
Patient Disposition: Admit
Date of Disposition: 03/11/25
Time of Disposition: 14:24
Presentation/result/management discussed w/ accepting MD/DO: Hospitalist
Discharge Problem:
Urinary tract infection
Prescriptions:
No Action
alprazolam 0.5 MG tablet
0.25 mg PO DAILY PRN (Reason: anxiety)
Patient Comments:
11/03/2021: last filled 07/09/21, 30 tabs for 30 days from [facility]
duloxetine 30 MG capsule,delayed release(DR/EC)
90 mg PO HS
tizanidine 4 MG tablet
2 mg PO HS
Ubrelvy 100 MG tablet
100 mg PO DAILY PRN (Reason: Migraine)
carvedilol 3.125 mg Tablet
3.125 mg PO BID
Morphine Pump
1 dose SC .CONTINUOUS
Qulipta 30 mg Tablet
30 mg PO HS
pantoprazole [Protonix] 40 mg tablet,delayed release (DR/EC)
40 mg PO DAILY Qty: 30 0RF
Movantik 25 mg tablet
25 mg PO DAILY Qty: 1 0RF
ondansetron 8 mg Tablet,Disintegrating
8 mg PO Q8H PRN (Reason: nausea)
estradiol [Estrace] 0.01 % (0.1 mg/gram) Cream
1 g VAGINAL QWEEK
Referrals:
Cady Luke MD [Family Provider, Family Practice]
Interventions
Interventions:
*Risk Screen - Suicide Last Done: 03/11/25 12:04
*General Assessment Last Done: 03/11/25 12:04
*Neglect/Abuse Screening Last Done: 03/11/25 12:04
*ED COVID-19 Vaccine History Last Done: 03/11/25 13:02
*ED Influenza Vaccine History Last Done: 03/11/25 13:02
[facility] Fall Risk Assessment Tool Last Done: 03/11/25 13:02
ED-Female Genitourinary Assessment Last Done: 03/11/25 13:02
Discharge Date and Time
Print Language: WELSH
[2025-03-11 13:38] LABS: Hematocrit 38.1 % (37.0-47.0); Hemoglobin 12.8 g/dL (12.0-16.0); Mean Corp Hgb Conc. 33.6 g/dL (33.0-37.0); Mean Corpuscular Volume 85.6 fL (81.0-99.0); Nucleated Red Blood Cells % 0 %; Platelet Count 283 10^3/uL (130-400); Red Cell Dist. Width 12.7 % (11.5-14.5)
[2025-03-11 14:25] LABS: Blood Urea Nitrogen 9 mg/dl (7-17); Calcium 9.9 mg/dl (8.4-10.2); Carbon Dioxide 27 mmol/L (22-30); Chloride 105 mmol/L (98-107); Estimated Creatinine Clearance 90 ml/min; Glucose 84 mg/dl (70-99); Sodium 134 mmol/L (135-145); eGFR > 60.00
[2025-03-11 15:01] VITALS: BP 133/79
[2025-03-11] MEDS: NSS 1000 IV (15:12)
--- NOTE | 2025-03-11 15:20 | HPS.HSE ---
Family Physician
-
Family Physician: Cady Luke MD
Chief Complaint
-
dysuria
History of Present Illness
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
nephrolithiasis sent by Urology with 1 week of dysuria, burning on urination and reported fever at home for past week. She started with symptoms of incomplete urinary bladder emptying few months ago and found atonic bladder on urodynamic studies. CT
done 1 week before admission showed non-obstrcuting R nephrolitiasis
Medical History
Past Medical History
Past Medical History: Reports Other
Additional Past Medical History:
see HPI
Past Surgical History: Reports Other
Additional Past Surgical History:
see HPI
Social History
Tobacco: Non-smoker
Alcohol: Occasional
Drug: None
Family History
Family History: Other (multiple spinal surgeries in mother)
Allergies / Home Medications
Allergies reflects when Allergies were last updated in [employer].
Home Medications with original date entered in [employer]
Allergy/Medication List:
Allergies
Allergy/AdvReac Type Severity Reaction Status Date / Time
iodine Allergy Anaphylaxis Verified 03/11/25 12:09
latex Allergy Swelling, Verified 03/11/25 12:09
Hives
monosodium glutamate Allergy Headache, Verified 03/11/25 12:09
dizziness
shellfish derived Allergy Anaphylaxis Verified 03/11/25 12:09
Sulfa (Sulfonamide Allergy stomach Verified 03/11/25 12:09
Antibiotics) pains,hives,facial
swelling
topiramate (From Topamax) Allergy Hives/ITCHING Verified 03/11/25 12:09
AND
SWELLING
Home Medications
alprazolam 0.5 mg tablet 0.5 mg PO DAILYPRN PRN anxiety 07/22/16
duloxetine 30 mg capsule,delayed release 90 mg PO HS Depression 07/22/16
tizanidine 4 mg tablet 2 mg PO HS Muscle Spasms 08/16/17
ubrogepant 100 mg tablet (Ubrelvy) 100 mg PO DAILYPRN PRN Migraine 02/13/21
Morphine Pump 1 dose SC .CONTINUOUS Pain 11/03/21
carvedilol 3.125 mg tablet 3.125 mg PO BID Blood pressure 11/03/21
atogepant 60 mg tablet (Qulipta) 60 mg PO HS 03/11/25
furosemide 40 mg tablet (Lasix) 40 mg PO DAILYPRN PRN fluid gained 03/11/25
ibuprofen 200 mg tablet (Advil) 400 mg PO Q8HPRN PRN mild pain 03/11/25
naloxegol 25 mg tablet (Movantik) 25 mg PO HS 03/11/25
oxycodone-acetaminophen 10 mg-325 mg tablet 1 tab PO Q8HPRN PRN severe pain 03/11/25
pantoprazole 40 mg tablet,delayed release (Protonix) 40 mg PO QPM 03/11/25
tamsulosin 0.4 mg capsule 0.4 mg PO HS 03/11/25
Review of Systems
-
History Source: Patient
A 12 point ROS was completed and negative except as noted: Yes
: Reports See HPI
Physical Exam
Vital Signs
Vital Signs
Temp Pulse Resp BP Pulse Ox
98.3 F 65 16 133/79 99
03/11/25 15:01 03/11/25 15:01 03/11/25 15:01 03/11/25 15:01 03/11/25 15:01
Physical Exam
General: Well Developed, Well Nourished and No Apparent Distress
HEENT: NormoCephalic, Anicteric and Moist mucous membranes
Respiratory: Clear; No Wheezes or Crackles
Cardiac: S1/S2 and Regular Rhythm; No Murmur
GI: Soft, Non Tender and Non Distended
Genito-urinary: No costovertebral tender
Musculoskeletal: No Clubbing, No Cyanosis and No Edema
Skin: Warm; No Rash or Jaundice
Neuro: Awake, Alert, Oriented and AO x 3
Psych: Calm
Laboratory Results
-
03/11/25 13:24
03/11/25 13:55
Data Reviewed
-
Lab Data: Labs Reviewed by me
Impression/Plan
-
A/P:
#Dysuria with MDRO E.coli in urine and non-obstrcuting R nephrolithiasis
Unclear if just colonisation or infection that needs to be treated since no leukocytosis and no fever on admisison but patient was on Macrobid
Check UA, Bcx
US renal
Defer Abx to ID
Urology consult
Bladder scan PRN
Outpatient Ucx: E.Coli sensitive to Genta, Zosyn, carbapenems
#Seroma within the soft tissues lateral to right hip replacement
decrease in size from prior CT of October 02, 2023
Unclear if any use in drainage, encourage to discuss with ortho as outpatient (was done with )
#Recurrent constipation
#colonic inertia
#Atonic uroinary bladder
can be 2/2 opioid dependency
Advised w/u with PCP to order Brain and spine MRI with contrast
#CHronic pain 2/2 Hx of spinal stenosis and bulged disks
#Opiouid dependency
#SLE
#Migraines
#GERD
#Anxiety
#Takotsubo CM
#Anxiety d/o
cont home meds
cont Morphine pump (Followed by )
No new recent neurologic deficit, however Hx of chronic b/l feet numbness and fingers tingling - cont to follow with outpatient spinal specialist
DVT ppx lovenox
Full code
I have spent at least 79min reviewing chart, test results, communicaiton with consultants and providing direct patient care
[2025-03-11 15:37] LABS: Urine Character Clear (Clear)
[2025-03-11 15:58] LABS: Urine Red Blood Cell 0-2 /HPF (0-2)
--- NOTE | 2025-03-11 16:19 | W.PN.UPDATE ---
Update Note
Progress Note Update
full urinary bladder - urologist recommended Sandhu
--- NOTE | 2025-03-11 16:31 | EDCM ---
Reviewed chart and met with pt bedside in ED. Lives with her and daughter in 2 SH, 1 QI.
Independent in ADLs, personal care and ambulation at baseline. No assistive devices. Has Shower rails and ostomy supplies.
Other daughter lives down the street and provides support.
Confirms prescription coverage.
Hx [facility], no hx SNF.
PCP: Cady Luke
Pharmacy: [facility]
Anticipate discharge home, CM will continue to follow for all discharge planning needs.
[2025-03-11 16:53] VITALS: BP 149/81
[2025-03-11 16:54] VITALS: BMI 32.6
--- NOTE | 2025-03-11 17:05 | CON.ID ---
Addendum entered and electronically signed by Tc Bellamy DO 03/12/25 13:08:
HPI did not cross over yesterday and is being added now.
Joanne Landa is being seen infectious delete that Infectious Diseases consultation regarding ESBL E. coli UTI. History is obtained from chart review, along with patient interview.
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 Additionally, she reports a longstanding history of nephrolithiasis. She notes that since her surgery in September she has had
multiple episodes of urinary tract infections, and has been on multiple courses of antibiotics. Several weeks ago she was placed on a course of Bactrim and reports feeling improved while on the medication (although not to 100%). Thereafter, she
again developed urinary discomfort and was placed on Macrobid. Recent urine culture has revealed the presence of ESBL E. coli, and she was sent to the ER for further evaluation. At home, she reports recent fevers to 100.8 degrees. She also admits
to chills. She admits to dysuria, but no hematuria.
Original Note:
Consultation
-
Date/Time Consultation Requested: 03/11/2025 1501
Date/Time Consultation Performed: 03/11/2025 1645
Requesting Provider: Dr. Leonard
Performing Provider: Dr. Bellamy
Reason for Consultation: Complicated urinary tract infection
Chief Complaint / Past History
Past History
Additional Past Medical History:
Takotsubo cardiomyopathy
Chiari malformation
Migraine
IBS
DM
Asthma
Nephrolithiasis
Additional Past Surgical History:
Cholecystectomy
Right RAMONA
Chronic low back pain
Allergy History:
iodine Allergy (Verified 03/11/25 12:09)
Anaphylaxis
latex Allergy (Verified 03/11/25 12:09)
Swelling, Hives
monosodium glutamate Allergy (Verified 03/11/25 12:09)
Headache, dizziness
shellfish derived Allergy (Verified 03/11/25 12:09)
Anaphylaxis
Sulfa (Sulfonamide Antibiotics) Allergy (Verified 03/11/25 12:09)
stomach pains,hives,facial swelling
topiramate (From Topamax) Allergy (Verified 03/11/25 12:09)
Hives/ITCHING AND SWELLING
Medications Reviewed: Yes
Current Antibiotics:
Zosyn (in ER)
Social History
Tobacco: Non-Smoker
Alcohol: None
Drug: None
Living: With Family
Employment: Not Employed
Family History
Family History: Not Pertinent
Review of Systems
Vital Signs
Temp Pulse Resp BP Pulse Ox
97.9 F 68 18 149/81 100
03/11/25 16:53 03/11/25 16:53 03/11/25 16:53 03/11/25 16:53 03/11/25 16:53
Physical Exam
Physical Exam
Constitutional: No Acute Distress, Comfortable and Non-toxic
Eyes: No Conjunctival Hemorrhage and Sclera Anicteric
Oral: No Thrush and No Ulcers
Cardiovascular: Regular Rate and S1/S2; Negative S3/S4
Pulmonary: Clear; Negative Wheezes, Rales or Rhonchi
Gastrointestinal: Soft, Tender (Suprapubic, low abdomen; mild), Non Distended and Normal Bowel Sounds
Genito-Urinary: CVA Tenderness (Right); Negative Sandhu
Extremities: Negative Edema, Cyanosis or Erythema
Skin: Warm and Dry; Negative Rash or Jaundice
Neurological: Awake and Alert
Psychological: Calm
Lab / Diagnostic Study Results
03/11/25 13:24
03/11/25 13:55
Abs Immat Gran (auto) 0.0 10^3/uL (0-0.05) 03/11/25 13:24
Absolute Neuts (auto) 3.1 10^3/uL (1.4-6.5) 03/11/25 13:24
Absolute Lymphs (auto) 1.8 10^3/uL (1.2-3.4) 03/11/25 13:24
Absolute Monos (auto) 0.5 10^3/uL (0.1-0.6) 03/11/25 13:24
Absolute Basos (auto) 0.1 10^3/uL (0-0.2) 03/11/25 13:24
Immature Gran % 0.4 % (0-0.5) 03/11/25 13:24
Neutrophils % 54.7 % (42.2-75.2) 03/11/25 13:24
Lymphocytes % 31.4 % (20.5-51.1) 03/11/25 13:24
Monocytes % 8.0 % (1.7-9.3) 03/11/25 13:24
Eosinophils % 4.1 % (0-6) 03/11/25 13:24
Basophils % 1.4 % (0-2) 03/11/25 13:24
Ur Squamous Epith Cells 3-5 /LPF (Few) 03/11/25 14:58
Microbiology Results
Micro:
03/11/25 14:58 Urine Culture - Pending
Urine
03/11/25 15:11 Blood Culture - Pending
Blood/Venous
03/11/25 15:11 Blood Culture - Pending
Blood/Venous
Outpatient urine culture (at [facility]) reviewed; positive ESBL E. coli
Imaging:
03/11/2025 Renal ultrasound with bladder: no focal abnormality of urinary bladder. There is shadowing echogenicity in the lower pole of the right kidney which appears to represent a single nephrolith.
02/27/2025 CT abdomen/pelvis: right sided nephroliths are present. No convincing evidence for right ureteral calculus. Evaluation of the pelvis is limited by streak artifact from right hip prosthesis. Seroma within the soft tissue lateral to the
right hip replacement but decreased in size from CT dated 10/02/2023.
Assessment / Plan
Complicated urinary tract infection secondary to ESBL E. coli
Dysuria, urinary urgency and urinary frequency
Neurogenic bladder
Takotsubo cardiomyopathy
Chiari malformation
Migraine
IBS
DM
Asthma
Nephrolithiasis
Recommendations:
Begin ertapenem 1 gm IV q.24 hours.
Await repeat urine culture.
Will attempt to get hardcopy of recent outpatient urinalysis/culture tomorrow.
Monitor white count and temperature curve.
Monitor for clinical improvement of symptomatology.
--- NOTE | 2025-03-11 17:07 | W.PN.URO.CBU ---
Today's Communication / Plan
-
place hart teachleg bag hart care
Assessment / Plan
-
atonic bladder MRO jaleel places hart and have pt learn cic will leave u to int medicine about po vs abs and dusration
Diagnosis
-
Date of Service: March 11, 2025
-
Patient Diagnosis:atonic neurogenic bladder with recurrent utis now mdro
Post Op Day:
Subjective
-
asx
Objective
-
Vital Signs
Temp Pulse Resp BP Pulse Ox
97.9 F 68 18 149/81 100
03/11/25 16:53 03/11/25 16:53 03/11/25 16:53 03/11/25 16:53 03/11/25 16:53
Laboratory Results
03/11/25 13:24
03/11/25 13:55
Review of Systems
-
: Difficulty Voiding
Physical Exam
-
General - well developed, well nourished, no acute distress
Chest - clear bilaterally
Abdomen - soft, non-tender, positive bowel sounds, no CVAT, no incisional pain or distention
Genitalia - normal
Rectal - normal
Skin - warm & dry with no rash
Neuro - AOx3, no motor deficits
Extremities - no clubbing, no cyanosis, no edema
Incision - clean, dry
Dressing - clean, dry, intact
Counseling
-
hart please
Care Review
Data Reviewed
Discussed with: Hospitalist and Nursing
CT Scan: Image Pers Reviewed
--- NOTE | 2025-03-11 18:49 | PTCARENOTE ---
Rn hospital wellness coordinator- Patient's admission assessment completed remotely via phone. Patient qualifies as a moderate fall risk.
[2025-03-11] MEDS: INVANZ 60 MG IV (19:34)
[2025-03-11] MEDS: LOVENOX 40 MG SC (19:34)
[2025-03-11] MEDS: PROTONIX 40 MG PO (19:34)
[2025-03-11] MEDS: MOTRIN 400 MG PO (20:37)
[2025-03-11] MEDS: CYMBALTA DELAYED RELEASE 90 MG PO (22:11)
[2025-03-11] MEDS: FLOMAX 0.4 MG PO (22:11)
[2025-03-11] MEDS: COREG 3.125 MG PO (22:12)
[2025-03-11] MEDS: ZANAFLEX 2 MG PO (22:13)
[2025-03-11] MEDS: MOVANTIK 25 MG PO (22:13)
[2025-03-11 23:03] VITALS: BP 133/84
[2025-03-12] MEDS: MOTRIN 400 MG PO ×2 (06:15→21:43)
[2025-03-12 07:30] VITALS: BP 116/72
[2025-03-12] MEDS: COREG PO (07:47)
[2025-03-12 07:48] LABS: Hematocrit 36.1 % (37.0-47.0); Hemoglobin 12.0 g/dL (12.0-16.0); Mean Corp Hgb Conc. 33.2 g/dL (33.0-37.0); Mean Corpuscular Volume 88.5 fL (81.0-99.0); Nucleated Red Blood Cells % 0 %; Platelet Count 232 10^3/uL (130-400); Red Cell Dist. Width 12.6 % (11.5-14.5)
[2025-03-12 08:33] LABS: ALT (SGPT) 14 U/L (0-35); AST (SGOT) 20 U/L (14-36); Albumin 3.3 g/dl (3.5-5.0); Alkaline Phosphatase 69 U/L (38-126); Blood Urea Nitrogen 12 mg/dl (7-17); Calcium 9.4 mg/dl (8.4-10.2); Carbon Dioxide 29 mmol/L (22-30); Chloride 106 mmol/L (98-107); Estimated Creatinine Clearance 90 ml/min; Glucose 86 mg/dl (70-99); Potassium 4.3 mmol/L (3.5-5.1); Sodium 136 mmol/L (135-145); Total Protein 5.9 g/dl (6.3-8.2); eGFR > 60.00
--- NOTE | 2025-03-12 08:57 | W.PN.HOSP.TC ---
Today's Communication/Plan
-
Continue ertapenem.
Teaching self cath
Assessment / Plan
Assessment / Plan
Impression:
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
nephrolithiasis sent by Urology with 1 week of dysuria, burning on urination and reported fever at home for past week. She started with symptoms of incomplete urinary bladder emptying few months ago and found atonic bladder on urodynamic studies. CT
done 1 week before admission showed non-obstrcuting R nephrolitiasis
Assessment/plan:
#Dysuria with MDRO E.coli in urine and non-obstrcuting R nephrolithiasis
Unclear if just colonisation or infection that needs to be treated since no leukocytosis and no fever on admisison but patient was on Macrobid
Infectious disease input.
Continue ertapenem
Urology consulted status post hart
Outpatient Ucx: E.Coli sensitive to Genta, Zosyn, carbapenems
#Seroma within the soft tissues lateral to right hip replacement
decrease in size from prior CT of October 02, 2023
Unclear if any use in drainage, encourage to discuss with ortho as outpatient (was done with )
#Recurrent constipation
#colonic inertia
#Atonic uroinary bladder
can be 2/2 opioid dependency
Advised w/u with PCP to order Brain and spine MRI with contrast
#CHronic pain 2/2 Hx of spinal stenosis and bulged disks
#Opiouid dependency
#SLE
#Migraines
#GERD
#Anxiety
#Takotsubo CM
#Anxiety d/o
cont home meds
cont Morphine pump (Followed by )
No new recent neurologic deficit, however Hx of chronic b/l feet numbness and fingers tingling - cont to follow with outpatient spinal specialist
Abnormal labs:
Wounds:
CODE STATUS: Full code
DVT prophylaxis: Lovenox
Diet: Regular diet
Disposition: Continue ertapenem
Total time spent on today's encounter was 55 minutes which included time spent in counseling the patient/family regarding diagnosis and treatment plan as listed above, goals of care, and symptom management. Case was discussed with nursing staff,
specialists, and care coordinators/case management. All labs and imaging personally reviewed by me. Remainder the time spent in detailed review of previous records, lab data, imaging, and other medical provider documentation.
Anticipated Discharge: 24 - 48 hours
Subjective/Interval History
-
Date of Service: March 12, 2025
Patient seen and examined at bedside, denies any chest pain or shortness of breath, no abdominal pain, no nausea, no vomiting, no diarrhea or constipation.
Objective Data
-
Labs:
Laboratory Results
03/12/25
07:32
WBC 4.8
Hgb 12.0
Hct 36.1 L
Plt Count 232
Sodium 136
Potassium 4.3
Chloride 106
Carbon Dioxide 29
BUN 12
Creatinine 0.7
Glucose 86
Calcium 9.4
Total Bilirubin 0.3
AST 20
ALT 14
Alkaline Phosphatase 69
Vital Signs:
Vital Signs
Temp Pulse Resp BP Pulse Ox
98.0 F 74 16 116/72 97
03/12/25 07:30 03/12/25 07:30 03/12/25 07:30 03/12/25 07:30 03/12/25 07:30
I&O
03/11/25 03/12/25 03/13/25
06:59 06:59 06:59
Intake Total 480 / 480
Balance 480 / 480
Physical Exam
-
General: Well Developed, Well Nourished, No Apparent Distress and Comfortable
HEENT: Normocephalic, Atraumatic, Moist Mucous Membranes, No Ptosis, PERRLA and Nose Appears Normal
Respiratory: Clear to Auscultation and Non Labored Respirations
Cardiac: Regular Rhythm and S1/S2
Breast: Deferred by me
GI: Soft, Nontender, Nondistended and Normal Bowel Sounds
Genito-urinary: No Costovertebral Tender
Musculoskeletal: No Clubbing, No Cyanosis and No Edema
Skin: Warm
Neuro: Awake, Alert, Oriented, AO x 3 and No Motor Deficits
Psych: Calm
Data Reviewed
-
Diagnostic Radiology: Image personally visualized and interpreted and Report Reviewed by me
CT Scan: Image personally visualized and interpreted and Report Reviewed by me
Ultrasound: Image personally visualized and interpreted and Report Reviewed by me
MRI: Image personally visualized and interpreted and Report Reviewed by me
Medical Tests (Nuc Med, Echo etc): Image personally visualized and interpreted and Report Reviewed by me
Labs: Labs Reviewed by me
Old Records: Reviewed
--- NOTE | 2025-03-12 12:40 | WOUNDNOTE ---
[facility] RN Note: Patient's ileostomy pink. Ostomy appliance intact. Patient stated she has ostomy supplies and can change her own appliance. Discussed CIC with patient per Dr. Keita's request. Patient stated she is receptive to learning. Patient
viewed [employer]'s female CIC video with the [employer] Speedicatheter which is pre-lubricated. Patient instructed she would need to use an iodine free cleanser to clean prior to CIC (i.e. mild soap and water or CHG wipes). Will order CIC supplies
for patient once catheter ecuadorean size and frequency confirmed with Dr. Keita. Discussed with [facility] liaison Naheed Golden who stated VN can teach patient CIC once patient receives her supplies at home. Patient's sacrum and heel skin intact. Patient
turns self in bed and ambulates.
--- NOTE | 2025-03-12 12:47 | W.PN.URO.CBU ---
Today's Communication / Plan
-
teach foly care for discharge
Assessment / Plan
-
atonic bladder MRO jaleel places hart and have pt learn cic will leave u to int medicine about po vs abs and dusration
Diagnosis
-
Date of Service: March 12, 2025
-
Patient Diagnosis:
Post Op Day:
Patient Diagnosis:atonic neurogenic bladder with recurrent utis now mdro
Post Op Day:
Subjective
-
hatesd hart
Objective
-
Vital Signs
Temp Pulse Resp BP Pulse Ox
98.0 F 74 16 116/72 97
03/12/25 07:30 03/12/25 07:30 03/12/25 07:30 03/12/25 07:30 03/12/25 07:30
Intake and Output
03/11/25 03/12/25 03/13/25
06:59 06:59 06:59
Intake Total 480 / 480
Balance 480 / 480
Intake:
Oral fluids 480 / 480
Other:
Number of approximated MODERATE 2
amounts of urine
Laboratory Results
03/12/25 07:32
03/12/25 07:32
Review of Systems
-
: Difficulty Voiding
Physical Exam
-
General - well developed, well nourished, no acute distress
Chest - clear bilaterally
Abdomen - soft, non-tender, positive bowel sounds, no CVAT, no incisional pain or distention
Genitalia - normal
Rectal - normal
Skin - warm & dry with no rash
Neuro - AOx3, no motor deficits
Extremities - no clubbing, no cyanosis, no edema
Incision - clean, dry
Dressing - clean, dry, intact
Counseling
-
please teach leg [facility] care
Care Review
Data Reviewed
Discussed with: Nursing
--- NOTE | 2025-03-12 13:08 | W.PN.ID1 ---
Date of Service
Date of Service: March 12, 2025
Today's Communication
Continue abx.
Assessment / Plan
Complicated urinary tract infection secondary to ESBL E. coli
Dysuria, urinary urgency and urinary frequency
Neurogenic bladder
Takotsubo cardiomyopathy
Chiari malformation
Migraine
IBS
DM
Asthma
Nephrolithiasis
Recommendations:
Continue ertapenem 1 gm IV q.24 hours.
Monitor white count and temperature curve.
Monitor for clinical improvement of symptomatology.
Will require a 10 to 14-day course of IV antibiotics.
Will order PICC line
Home IV sheet placed on paper chart.
Will need outpatient follow-up for urinary retention, along with nephrolithiasis, which may be the nidus of ongoing infection.
����������������������������������������������������������
Chief Complaint
-: UTI
Subjective / Review of Systems
Review of Systems: No Fever, No Chills, Abdominal Pain (Low pelvic; suprapubic) and Dysuria
Vital Signs / Physical Exam
Vital Signs
Vital Signs
Temp Pulse Resp BP Pulse Ox
98.0 F 74 16 116/72 97
03/12/25 07:30 03/12/25 07:30 03/12/25 07:30 03/12/25 07:30 03/12/25 07:30
Physical Exam
Constitutional: No Acute Distress, Comfortable and Non-toxic
Eyes: No Conjunctival Hemorrhage and Sclera Anicteric
Cardiovascular: S1/S2; Negative S3/S4
Pulmonary: Clear; Negative Wheezes or Rales
Gastrointestinal: Soft, Non Tender and Non Distended
Genito-Urinary: Sandhu and Clear Urine; Negative Turbid Urine or Hematuria
Extremities: Negative Edema, Cyanosis or Erythema
Neurological: Awake and Alert
Psychological: Calm
Objective Data
Lab Data
Lab Results
03/12/25 07:32
03/12/25 07:32
Estimated Creat Clear 90 ml/min 03/12/25 07:32
Total Bilirubin 0.3 mg/dl (0.2-1.3) 03/12/25 07:32
AST 20 U/L (14-36) 03/12/25 07:32
ALT 14 U/L (0-35) 03/12/25 07:32
Alkaline Phosphatase 69 U/L (38-126) 03/12/25 07:32
Most recent labs reviewed.
Micro Results:
03/11/25 14:58 Urine Culture - Final
Urine No Significant Growth
03/11/25 15:11 Blood Culture - Pending
Blood/Venous
03/11/25 15:11 Blood Culture - Pending
Blood/Venous
Outpatient urine culture (at [facility]) reviewed; positive ESBL E. coli
Urine Culture 03/07/2025
E. coli by MALDI-TOF
50,000 - 100,000 cfu/mL
Amoxicillin/Clavulanic Acid I
Ampicillin R
Cefazolin R
Cefepime R
Cefoxitin I
Cefpodoxime R
Ceftriaxone R
Ciprofloxacin R
Ertapenem S
Gentamicin S
Levofloxacin R
Meropenem S
Nitrofurantoin R
Piperacillin/Tazobactam S
Tetracycline R
Tobramycin I
Trimethoprim/Sulfa S
Imaging:
03/11/2025 Renal ultrasound with bladder: no focal abnormality of urinary bladder. There is shadowing echogenicity in the lower pole of the right kidney which appears to represent a single nephrolith.
02/27/2025 CT abdomen/pelvis: right sided nephroliths are present. No convincing evidence for right ureteral calculus. Evaluation of the pelvis is limited by streak artifact from right hip prosthesis. Seroma within the soft tissue lateral to the
right hip replacement but decreased in size from CT dated 10/02/2023.
[2025-03-12 15:30] VITALS: BP 123/78
--- NOTE | 2025-03-12 15:30 | WOUNDNOTE ---
[facility] RN Note: Dr. Keita asked about teaching patient CIC. Plan is VN to teach patient CIC. She had a Sandhu catheter placed by nursing early this am. Confirmed with Dr. Keita use 14 wolof catheter, QID frequency. t/c Spoke with Alden from [facility] where she gets her ileostomy supplies and ordered CIC catheters: [employer] Speedicath compact female catheters 14 [place] ([employer] order #[id number]). Alden from [facility] to fax a script for CIC catheters to Dr. Keita to sign (fax
#[phone]) and fax back to [facility] ([facility]�s fax # ). [facility] consulted for teaching patient CIC. Discussed with IBRAHIMA Pabon nurse liaison. t/c and updated patient.
--- NOTE | 2025-03-12 15:57 | VNURNOTE ---
Addendum entered by Cady Golden RN 03/13/25 14:18:
Rec'ed update from that pt's insurance requires a certified agency. [facility] has accepted pt. [facility] to decline referral. Jolene in Intake updated.
Original Note:
Home Health Liaison met with patient and spouse at bedside to discuss [facility] nurse/therapy, visits, schedule and homebound status. Patient is agreeable and understands that visits at home will be 2-3 x per week to assess and teach medical and st
cath management.
Patient is aware that [facility] will contact them for start of care within a week after discharge from . Provided contact number for [facility].
[facility] referral completed in [facility].
[2025-03-12] MEDS: INVANZ 60 MG IV (16:14)
[2025-03-12] MEDS: LOVENOX 40 MG SC (16:21)
[2025-03-12] MEDS: PROTONIX 40 MG PO (16:21)
[2025-03-12] MEDS: TYLENOL 325 MG PO (16:38)
[2025-03-12] MEDS: COREG 3.125 MG PO (21:37)
[2025-03-12] MEDS: FLOMAX 0.4 MG PO (21:38)
[2025-03-12] MEDS: MOVANTIK 25 MG PO (21:38)
[2025-03-12] MEDS: CYMBALTA DELAYED RELEASE 90 MG PO (21:38)
[2025-03-12] MEDS: ZANAFLEX 2 MG PO (21:38)
[2025-03-12] MEDS: ROXICODONE 10 MG PO (22:44)
[2025-03-12 23:04] VITALS: BP 110/65
--- NOTE | 2025-03-13 00:44 | PTCARENOTE ---
Pt AAOx3, self, rings appropriately. Pt refused bed alarm. Pt education provided. Bed locked, bed in lowest position, call egan in reach.
[2025-03-13 07:30] VITALS: BP 105/62
[2025-03-13] MEDS: COREG PO (08:17)
[2025-03-13] MEDS: ROXICODONE 10 MG PO ×2 (08:19→17:43)
[2025-03-13] MEDS: TYLENOL 325 MG PO ×2 (08:20→17:43)
--- NOTE | 2025-03-13 09:11 | W.PN.URO.CBU ---
Today's Communication / Plan
-
remove hart at discharge
Assessment / Plan
-
atonic bladder MDRO HAS HART BUT CALLY REMOVE AT TIME OF D/C and have pt learn cic will leave up to int medicine about po vs abs and duration
Diagnosis
-
Date of Service: March 13, 2025
-
Patient Diagnosis:
Post Op Day:
Patient Diagnosis:
Post Op Day:
Patient Diagnosis:atonic neurogenic bladder with recurrent utis now mdro
Post Op Day:
Subjective
-
hates hart
Objective
-
Vital Signs
Temp Pulse Resp BP Pulse Ox
97.7 F 65 16 105/62 99
03/13/25 07:30 03/13/25 07:30 03/13/25 07:30 03/13/25 07:30 03/13/25 07:30
Intake and Output
03/12/25 03/13/25 03/14/25
06:59 06:59 06:59
Intake Total 480 / 480 1200 / 1200
Output Total 850 / 850
Balance 480 / 480 350 / 350
Intake:
Oral fluids 480 / 480 1200 / 1200
Output:
Urine, Hart 500 / 500
Urine, Voided 350 / 350
Other:
Number of approximated MODERATE 2
amounts of urine
Laboratory Results
03/12/25 07:32
03/12/25 07:32
Review of Systems
-
: Difficulty Voiding
Physical Exam
-
General - well developed, well nourished, no acute distress
Chest - clear bilaterally
Abdomen - soft, non-tender, positive bowel sounds, no CVAT, no incisional pain or distention
Genitalia - normal
Rectal - normal
Skin - warm & dry with no rash
Neuro - AOx3, no motor deficits
Extremities - no clubbing, no cyanosis, no edema
Incision - clean, dry
Dressing - clean, dry, intact
Counseling
-
remove hart at discharge
Care Review
Data Reviewed
Discussed with: Nursing
--- NOTE | 2025-03-13 11:00 | CM ---
Addendum entered by Kvng Blackwood 03/13/25 13:52:
Spoke w/ Enriqueta, reviewed benefits w/ patient. Potential plan to d/c tomorrow, [facility] Monday
Referral sent to [facility] for VN needs (IV infusions, hart, catheter)
Original Note:
Chart reviewed. Patient will need continuous IV abx at discharge. Script on chart.
Met w/ patient bedside, reviewed IV abx needs. Patient agreeable to [facility]. Made patient aware that she may not be able to use [facility] since she will need IV nursing for abx which will need to be through a medicare certified agency. Patient
understood this.
Spoke w/ Enriqueta/[facility] nurse liaison, reviewed referral. Script and clinicals sent to [facility]. Per Enriqueta, will plan to see patient bedside this afternoon. Enriqueta will review insurance benefits and update CM.
Patient stated that she may d/c w/ hart as well
Plan: Home w/ IV abx through [facility]
--- NOTE | 2025-03-13 13:19 | W.PN.HOSP.TC ---
Today's Communication/Plan
-
Plan to be discharged home on IV ertapenem once arrangement for home infusion obtained
Patient will be discharged with Hart cath
Assessment / Plan
Assessment / Plan
Impression:
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
nephrolithiasis sent by Urology with 1 week of dysuria, burning on urination and reported fever at home for past week. She started with symptoms of incomplete urinary bladder emptying few months ago and found atonic bladder on urodynamic studies. CT
done 1 week before admission showed non-obstrcuting R nephrolitiasis
Assessment/plan:
#Dysuria with MDRO E.coli in urine and non-obstrcuting R nephrolithiasis
Unclear if just colonisation or infection that needs to be treated since no leukocytosis and no fever on admisison but patient was on Macrobid
Infectious disease input.
Continue ertapenem
Urology consulted status post hart
Outpatient Ucx: E.Coli sensitive to Genta, Zosyn, carbapenems
03/13
Plan to be discharged home on IV ertapenem once arrangement for home infusion obtained
#Seroma within the soft tissues lateral to right hip replacement
decrease in size from prior CT of October 02, 2023
Unclear if any use in drainage, encourage to discuss with ortho as outpatient (was done with )
#Recurrent constipation
#colonic inertia
#Atonic uroinary bladder
can be 2/2 opioid dependency
Advised w/u with PCP to order Brain and spine MRI with contrast
#CHronic pain 2/2 Hx of spinal stenosis and bulged disks
#Opiouid dependency
#SLE
#Migraines
#GERD
#Anxiety
#Takotsubo CM
#Anxiety d/o
cont home meds
cont Morphine pump (Followed by )
No new recent neurologic deficit, however Hx of chronic b/l feet numbness and fingers tingling - cont to follow with outpatient spinal specialist
Abnormal labs:
Wounds:
CODE STATUS: Full code
DVT prophylaxis: Lovenox
Diet: Regular diet
Disposition: Plan to be discharged home on IV ertapenem once arrangement for home infusion obtained
Patient will be discharged with Hart cath
Latex free intermittent self cath ordered and might be delivered Monday, can keep Hart catheter until straight cath delivered
Total time spent on today's encounter was 55 minutes which included time spent in counseling the patient/family regarding diagnosis and treatment plan as listed above, goals of care, and symptom management. Case was discussed with nursing staff,
specialists, and care coordinators/case management. All labs and imaging personally reviewed by me. Remainder the time spent in detailed review of previous records, lab data, imaging, and other medical provider documentation.
Anticipated Discharge: Today
Subjective/Interval History
-
Date of Service: March 13, 2025
Patient seen and examined at bedside, denies any chest pain or shortness of breath, no abdominal pain, no nausea, no vomiting, no diarrhea or constipation.
Objective Data
-
Vital Signs:
Vital Signs
Temp Pulse Resp BP Pulse Ox
97.7 F 65 16 105/62 99
03/13/25 07:30 03/13/25 07:30 03/13/25 07:30 03/13/25 07:30 03/13/25 07:30
I&O
03/12/25 03/13/25 03/14/25
06:59 06:59 06:59
Intake Total 480 / 480 1200 / 1200
Output Total 850 / 850
Balance 480 / 480 350 / 350
Physical Exam
-
General: Well Developed, Well Nourished, No Apparent Distress and Comfortable
HEENT: Normocephalic, Atraumatic, Moist Mucous Membranes, No Ptosis, PERRLA and Nose Appears Normal
Respiratory: Clear to Auscultation and Non Labored Respirations
Cardiac: Regular Rhythm and S1/S2
Breast: Deferred by me
GI: Soft, Nontender, Nondistended and Normal Bowel Sounds
Genito-urinary: No Costovertebral Tender
Musculoskeletal: No Clubbing, No Cyanosis and No Edema
Skin: Warm
Neuro: Awake, Alert, Oriented, AO x 3 and No Motor Deficits
Psych: Calm
--- NOTE | 2025-03-13 13:29 | W.PN.ID1 ---
Date of Service
Date of Service: March 13, 2025
Today's Communication
Continue antibiotics.
Assessment / Plan
Complicated urinary tract infection secondary to ESBL E. coli
Dysuria, urinary urgency and urinary frequency
Neurogenic bladder
Takotsubo cardiomyopathy
Chiari malformation
Migraine
IBS
DM
Asthma
Nephrolithiasis
Recommendations:
Continue ertapenem 1 gm IV q.24 hours (d#3)
Monitor white count and temperature curve.
Monitor for clinical improvement of symptomatology.
Will require a 14-day course of IV antibiotics.
Midline ordered
Home IV sheet placed on paper chart.
Will need outpatient follow-up for urinary retention, along with nephrolithiasis, which may be the nidus of ongoing infection.
����������������������������������������������������������
Chief Complaint
-: UTI
Subjective / Review of Systems
Review of Systems: No Fever, No Chills and Dysuria
Vital Signs / Physical Exam
Vital Signs
Vital Signs
Temp Pulse Resp BP Pulse Ox
97.7 F 65 16 105/62 99
03/13/25 07:30 03/13/25 07:30 03/13/25 07:30 03/13/25 07:30 03/13/25 07:30
Physical Exam
Constitutional: No Acute Distress, Comfortable and Non-toxic
Pulmonary: Non Labored
Gastrointestinal: Soft and Non Tender
Genito-Urinary: Sandhu and Clear Urine; Negative Hematuria
Neurological: Awake and Alert
Psychological: Calm
Objective Data
Lab Data
Lab Results
03/12/25 07:32
03/12/25 07:32
Estimated Creat Clear 90 ml/min 03/12/25 07:32
Total Bilirubin 0.3 mg/dl (0.2-1.3) 03/12/25 07:32
AST 20 U/L (14-36) 03/12/25 07:32
ALT 14 U/L (0-35) 03/12/25 07:32
Alkaline Phosphatase 69 U/L (38-126) 03/12/25 07:32
Most recent labs reviewed.
Micro Results:
03/11/25 15:11 Blood Culture - Preliminary
Blood/Venous No Growth in 24 hours- Final report to follow
03/11/25 15:11 Blood Culture - Preliminary
Blood/Venous No Growth in 24 hours- Final report to follow
03/11/25 14:58 Urine Culture - Final
Urine No Significant Growth
Outpatient urine culture (at [facility]) reviewed; positive ESBL E. coli
Urine Culture 03/07/2025
E. coli by MALDI-TOF
50,000 - 100,000 cfu/mL
Amoxicillin/Clavulanic Acid I
Ampicillin R
Cefazolin R
Cefepime R
Cefoxitin I
Cefpodoxime R
Ceftriaxone R
Ciprofloxacin R
Ertapenem S
Gentamicin S
Levofloxacin R
Meropenem S
Nitrofurantoin R
Piperacillin/Tazobactam S
Tetracycline R
Tobramycin I
Trimethoprim/Sulfa S
Imaging:
03/11/2025 Renal ultrasound with bladder: no focal abnormality of urinary bladder. There is shadowing echogenicity in the lower pole of the right kidney which appears to represent a single nephrolith.
02/27/2025 CT abdomen/pelvis: right sided nephroliths are present. No convincing evidence for right ureteral calculus. Evaluation of the pelvis is limited by streak artifact from right hip prosthesis. Seroma within the soft tissue lateral to the
right hip replacement but decreased in size from CT dated 10/02/2023.
--- NOTE | 2025-03-13 14:04 | WOUNDNOTE ---
[facility] RN note: t/c Spoke with Carly from [employer] who stated she does not see a signed script from Dr. Keita's office and will need medical notes. Faxed [place] medial notes at the fax number Carly gave me and tiger texted
Dr. Keita re: Arben needs the form that was faxed to his office signed and faxed back at . COREY Blackwood stated Yumiko is the VN for CIC teaching. t/c Spoke with IHSAN Vega who stated plan is for patient to go home with her
Sandhu as early as tomorrow and VN will remove her Sandhu and teach CIC when she receives her CIC latex free catheters.
[2025-03-13] MEDS: MOTRIN 400 MG PO (14:17)
--- NOTE | 2025-03-13 15:00 | WOUNDNOTE ---
[facility] RN note: t/c Spoke with nurse Peña from Dr. Keita's office who stated she will fax the physician signed script for latex free cic catheters to [facility] and to this radio news writer.
[2025-03-13 15:30] VITALS: BP 111/70
[2025-03-13 15:42] VITALS: BP 111/70
--- NOTE | 2025-03-13 16:04 | PTCARENOTE ---
clarified hart D/C plan with Attending- pt ordering latex free SC but cannot be deleivered until later in the week. D/C with hart UNLESS supplies arrive. If pt d/c's with hart- VN to remove and complete straight cath edu. Pt c/o discomfort/spasms
r/t hart. PRN medication administered- obtained order for Pyridium. No change in physical assessment, CB in reach.
--- NOTE | 2025-03-13 16:20 | WOUNDNOTE ---
[facility] RN note: Faxed Dr. Keita signed script for latex free CIC catheters, H+P and Dr. Keita's 03/11/25 note to [facility] at fax # which is a more direct line for urology supplies at [facility] after speaking with Elke at [facility].
[2025-03-13] MEDS: LOVENOX 40 MG SC (17:39)
[2025-03-13] MEDS: INVANZ 60 MG IV (17:40)
[2025-03-13] MEDS: PROTONIX 40 MG PO (17:40)
[2025-03-13] MEDS: COREG 3.125 MG PO (20:25)
[2025-03-13 23:00] VITALS: BP 110/72
[2025-03-13] MEDS: ZANAFLEX 2 MG PO (23:11)
[2025-03-13] MEDS: FLOMAX 0.4 MG PO (23:11)
[2025-03-13] MEDS: MOVANTIK 25 MG PO (23:11)
[2025-03-13] MEDS: CYMBALTA DELAYED RELEASE 90 MG PO (23:11)
[2025-03-14 01:06] VITALS: BP 110/72
--- NOTE | 2025-03-14 01:08 | PTCARENOTE ---
Pt is AAOx3, self, rings call egan appropriately. Bed locked, in lowest position, call egan in reach. Bed alarm refused by pt. Pt education provided.
[2025-03-14] MEDS: ROXICODONE 10 MG PO ×2 (02:23→10:24)
[2025-03-14] MEDS: TYLENOL 325 MG PO ×2 (02:25→10:27)
[2025-03-14 07:47] VITALS: BP 101/61
[2025-03-14] MEDS: COREG PO (09:23)
--- NOTE | 2025-03-14 10:48 | W.PN.HOSP.TC ---
Today's Communication/Plan
-
IV abx-Ertapenem s/p midline
OP urology f/u with Dr. Mallory
Assessment / Plan
Assessment / Plan
Impression:
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
nephrolithiasis sent by Urology with 1 week of dysuria, burning on urination and reported fever at home for past week. She started with symptoms of incomplete urinary bladder emptying few months ago and found atonic bladder on urodynamic studies. CT
done 1 week before admission showed non-obstrcuting R nephrolitiasis
Assessment/plan:
#Dysuria with MDRO E.coli in urine and non-obstructing R nephrolithiasis
Unclear if just colonization or infection that needs to be treated since no leukocytosis and no fever on admission but patient was on Macrobid
Infectious disease input.
Continue ertapenem
Urology consulted status post hart
Outpatient Ucx: E.Coli sensitive to Genta, Zosyn, carbapenems
Home IV abx set up completed.
#Seroma within the soft tissues lateral to right hip replacement
decrease in size from prior CT of October 02, 2023
Unclear if any use in drainage, encourage to discuss with ortho as outpatient (was done with )
#Recurrent constipation
#colonic inertia
#Atonic uroinary bladder
can be 2/2 opioid dependency
Advised w/u with PCP to order Brain and spine MRI with contrast
#CHronic pain 2/2 Hx of spinal stenosis and bulged disks
#Opioid dependency
#SLE
#Migraines
#GERD
#Anxiety
#Takotsubo CM
#Anxiety d/o
cont home meds
cont Morphine pump (Followed by )
No new recent neurologic deficit, however Hx of chronic b/l feet numbness and fingers tingling - cont to follow with outpatient spinal specialist
Abnormal labs:
Wounds:
CODE STATUS: Full code
DVT prophylaxis: Lovenox
Patient will be discharged with Hart cath
Latex free intermittent self cath ordered and might be delivered Monday, can keep Hart catheter until straight cath delivered
More than 30 minutes spent in discharge including
Final examination of the patient
Summarizing hospital stay
Instructions for continuing care to all relevant caregivers
Preparation of discharge records, prescriptions, and referral forms
Total time spent (in minutes): 55
Anticipated Discharge: Today
Subjective/Interval History
-
Date of Service: March 14, 2025
states of intermittent pain with catheter
Objective Data
-
Vital Signs:
Vital Signs
Temp Pulse Resp BP Pulse Ox
97.9 F 68 16 101/61 96
03/14/25 07:47 03/14/25 07:47 03/14/25 07:47 03/14/25 07:47 03/14/25 07:47
I&O
03/13/25 03/14/25 03/15/25
06:59 06:59 06:59
Intake Total 1200 / 1200 1000 / 1000
Output Total 850 / 850 1200 / 1200
Balance 350 / 350 -200 / -200
Physical Exam
-
General: Well Developed, Well Nourished, No Apparent Distress and Comfortable
HEENT: Normocephalic, Atraumatic, Moist Mucous Membranes, No Ptosis and Nose Appears Normal
Respiratory: Clear to Auscultation and Non Labored Respirations
Cardiac: Regular Rhythm and S1/S2
Breast: Deferred by me
GI: Soft, Nontender, Nondistended, Normal Bowel Sounds and Ostomy
Genito-urinary: No Costovertebral Tender and Hart
Musculoskeletal: No Edema
Skin: Warm
Neuro: Awake, Alert, Oriented, AO x 3 and No Motor Deficits
Psych: Calm
--- NOTE | 2025-03-14 10:51 | W.DCSUMMARY ---
Discharge Summary
Discharge Data
Date of Admission: 03/11/25
Date of Discharge: 03/14/25
-
Pending Results: No
Hospital Course
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
nephrolithiasis sent by Urology with 1 week of dysuria, burning on urination and reported fever at home for past week. She started with symptoms of incomplete urinary bladder emptying few months ago and found atonic bladder on urodynamic studies.
Outpatient urine culture with E. coli. Infectious disease and urology was consulted. Urology recommended Sandhu catheter placement. Recommended eventually remove Sandhu catheter with intermittent self-catheterization. Infectious disease the
patient and recommended IV antibiotics status post midline. Infectious disease recommended total of 14 days of IV antibiotics including hospital course. Patient was recommended follow-up outpatient with a primary urologist.
Discharge Plan
-
Patient Disposition: Home with Home Care
Discharge Diagnosis/Procedures: Dysuria with MDRO E.coli in urine and non-obstrcuting R nephrolithiasis.
Seroma within the soft tissues lateral to right hip replacement
Recurrent constipation
colonic inertia
#Atonic uroinary bladder
Diet: As tolerated and Regular
Activity: As tolerated
Activity Restrictions/Additional Instructions:
VN to teach patient clean intermittent catheterization (CIC), use 14 bots[place]an latex free CIC catheters, CIC frequency 4 times a day (QID). Latex free CIC catheter supply ordered from [employer] : [employer]oplast Speedicath compact female 14french
order #[id number].
Follow up with your urologist.
Recommend to make appointment follow-up with neurologist and recommend MRI of the brain and spine. Can also discuss with primary doctor.
Referrals:
Dawson Keita MD [Active, Urology]
Referral Note: please mario alberto dr corley and derrick alvarado request nursing to set up teaching for intermittent cath [phone]
Cady Luke MD [Family Provider, Family Practice] - in less than 1 week
Prescriptions:
New
Ertapenem [Invanz] 1000 MG
0.9% Sodium Chloride [Nss] 50 ML
120 mls/hr IV Q24H
Ordered By: Feliciano Garcia MD
Last Taken: 03/13/25 17:40 60 mls
Continued
alprazolam 0.5 MG tablet
0.5 mg PO DAILYPRN PRN (Reason: anxiety)
duloxetine 30 MG capsule,delayed release(DR/EC)
90 mg PO HS
tizanidine 4 MG tablet
2 mg PO HS
Ubrelvy 100 MG tablet
100 mg PO DAILYPRN PRN (Reason: Migraine)
carvedilol 3.125 mg Tablet
3.125 mg PO BID
Morphine Pump
1 dose SC .CONTINUOUS
Rx Instructions:
1.1mg per a 24 hours
ibuprofen [Advil] 200 mg Tablet
400 mg PO Q8HPRN PRN (Reason: mild pain)
Qulipta 60 mg Tablet
60 mg PO HS
pantoprazole [Protonix] 40 mg tablet,delayed release (DR/EC)
40 mg PO QPM
Movantik 25 mg tablet
25 mg PO HS
furosemide [Lasix] 40 mg Tablet
40 mg PO DAILYPRN PRN (Reason: fluid gained)
oxycodone-acetaminophen 10-325 mg Tablet
1 tab PO Q8HPRN PRN (Reason: severe pain)
tamsulosin 0.4 mg Capsule
0.4 mg PO HS
Discharge Orders:
Discharge Patient (As Directed); Ordered 03/14/25
Ordered By: Kashif Scott
Discharge Date and Time
Discharge Date/Time: 03/14/25 13:41
Print Language: MOHAWK
--- NOTE | 2025-03-14 11:40 | CM ---
Patient will discharge home today
Confirmed [facility] delivery today at 2pm
Yumiko QUACH scheduled to visit patient at 2pm
Updated patient bedside, aware of discharge plan today. Per patient, she lives very close and understands to be home by 2pm
IMM verbally reviewed, copy provided, copy on chart
Yumiko

Plan: Home w/ [facility] and Yumiko
[2025-03-14 12:40] VITALS: BP 120/79
== END 2025-03-14 13:41 | disposition home health service (06) | DRG 689 ==
LOC: 4 WEST ACU 15:59
PROVIDERS: ADMITTING PHYSICIAN Internal Medicine; ATTENDING PHYSICIAN Hospitalist; CONSULT PHYSICIAN Specialist; EMERGENCY PHYSICIAN Emergency Medicine; FAMILY PHYSICIAN Family Medicine; OTHER PHYSICIAN Internal Medicine Infectious Disease
DX: N39.0 Urinary tract infection, site not specified (principal); G93.5 Compression of brain; G95.20 Unspecified cord compression; I51.81 Takotsubo syndrome; F11.20 Opioid dependence, uncomplicated; J45.909 Unspecified asthma, uncomplicated; K58.9 Irritable bowel syndrome, unspecified; G43.909 Migraine, unspecified, not intractable, without status migrainosus; K31.84 Gastroparesis; Z91.040 Latex allergy status; Z88.2 Allergy status to sulfonamides; Z90.710 Acquired absence of both cervix and uterus; Z87.442 Personal history of urinary calculi; Z87.440 Personal history of urinary (tract) infections; F41.9 Anxiety disorder, unspecified; K21.9 Gastro-esophageal reflux disease without esophagitis; G89.4 Chronic pain syndrome; E03.9 Hypothyroidism, unspecified; E11.43 Type 2 diabetes mellitus with diabetic autonomic (poly)neuropathy; E78.00 Pure hypercholesterolemia, unspecified; I10 Essential (primary) hypertension; I25.10 Atherosclerotic heart disease of native coronary artery without angina pectoris; N32.89 Other specified disorders of bladder; Z93.3 Colostomy status; Z96.641 Presence of right artificial hip joint
CPT/HCPCS: 51798; 76770; 80048; 80053; 81003; 81015; 85025; 87040; 87086; 96361; 96374; 99284; J1335